=== PATIENT | female | born 1990 | race Caucasian/White ===

== ENCOUNTER 2022-04-12 09:07 | Inpatient (IN) ==
[2022-04-12 10:34] LABS: Amphetamine Screen,Urine Negative ng/mL (Cutoff=1000); Barbiturate Screen,Urine Negative ng/mL (Cutoff=200); Benzodiazepines Screen,Urine Negative ng/mL (Cutoff=200); Cannabinoid Screen,Urine Negative ng/mL (Cutoff = 50); Cocaine Screen,Urine Negative ng/mL (Cutoff= 300); Opiate Screen,Urine Negative ng/mL (Cutoff=300); Phencyclidine Screen,Urine Negative ng/mL (Cutoff=25)
[2022-04-12 10:34] LABS: Bilirubin,Urine Negative (Negative); Blood,Urine Negative (Negative); Clarity,Urine Clear (Clear); Color,Urine Yellow (Yellow); Glucose,Urine (UA) Normal (Normal); Ketones,Urine Negative (Negative); Leukocyte Esterase,Urine Negative (Negative); Nitrite,Urine Negative (Negative); Protein,Urine Trace mg/dL (Neg-Trace); Specific Gravity,Urine 1.028 (1.010-1.025); Urobilinogen,Urine Normal (Normal)
[2022-04-12 10:44] LABS: BUN/Creatinine Ratio 21 (6-26); Blood Urea Nitrogen 15 mg/dL (6-20); Carbon Dioxide 27 mEq/L (23-29); Chloride 105 mEq/L (98-107); Glucose 97 mg/dL (70-105); Sodium 136 mEq/L (136-145)
[2022-04-12 10:45] LABS: Acetaminophen < 10 mcg/mL (10-20); Calcium 8.8 mg/dL (8.6-10.3); Chol/HDL Ratio 4.1 (0-4.9); Cholesterol 164 mg/dL (< 200); Ethanol < 10 mg/dL (Less than 10); HDL Cholesterol 40 mg/dL (40-59); LDL Cholesterol,Calculated 104 mg/dL (< 100); Osmolality,Calculated 283 (280-300); Salicylate < 2.5 mg/dL (15.0-30.0); Triglycerides 102 mg/dL (< 150)
[2022-04-12 11:03] LABS: Basophils % 0.3 %; Eosinophils # 0.1 K/mcL (0.0-0.6); Eosinophils % 1.9 %; Hematocrit 41.9 % (35.3-44.9); Hemoglobin 13.6 g/dL (11.5-15.4); Immature Granulocytes % 0.1 % (0-4); Lymphocytes # 2.8 K/mcL (0.6-4.6); Lymphocytes % 38.8 %; Mean Corpuscular HGB Conc 32.5 g/dL (31.6-35.5); Mean Corpuscular Hemoglobin 30.1 pg (28.0-33.3); Mean Corpuscular Volume 92.7 fL (83.0-100.0); Mean Platelet Volume 11.6 fL (9.4-12.4); Monocytes # 0.4 K/mcL (0.0-1.3); Monocytes % 4.8 %; Neutrophils # 3.9 K/mcL (1.6-8.9); Platelet Count 229 K/mcL (140-400); Red Blood Count 4.52 M/mcL (3.82-4.97); Red Cell Distribution Width 11.8 % (11.5-14.5); Segmented Neutrophils % 54.1 %; White Blood Count 7.3 K/mcL (4.3-11.1)
[2022-04-12] MEDS ORDERED: Acetaminophen 325 MG TABLET PO ONE (11:04)
[2022-04-12 14:17] LABS: Influenza A PCR Negative (Negative); Influenza B PCR Negative (Negative); Resp. Syncytial Virus PCR Negative (Negative)
[2022-04-12 14:27] LABS: SARS-CoV-2 by PCR (In House) Negative (Negative)
[2022-04-12] MEDS ORDERED: Haloperidol Lactate 5 MG/ML VIAL IM PRN (14:39)
[2022-04-12] MEDS ORDERED: *HR* LORazepam 1 MG TABLET PO PRN (14:39)
[2022-04-12] MEDS ORDERED: *HR* LORazepam 2 MG/ML VIAL IM PRN (14:39)
[2022-04-12] MEDS ORDERED: Acetaminophen 325 MG TABLET PO PRN (14:39)
[2022-04-12] MEDS ORDERED: Ibuprofen 400 MG TABLET PO PRN (14:39)
[2022-04-12] MEDS ORDERED: hydrOXYzine pamoate 25 MG CAPSULE PO PRN (14:39)
[2022-04-12] MEDS ORDERED: haloperidoL 5 MG TABLET PO PRN (14:39)
[2022-04-12] MEDS: *HR* LORazepam 1 MG TABLET PO PRN (16:41)
[2022-04-12] MEDS: traZODone 50 MG TABLET PO PRN (20:08)
[2022-04-12] MEDS ORDERED: MOM Conc 10 ML UD.LIQ PO PRN (23:18)
[2022-04-13] MEDS: *HR* LORazepam 1 MG TABLET PO PRN ×2 (12:51→21:24)
[2022-04-13] MEDS: traZODone 50 MG TABLET PO PRN (21:24)
[2022-04-13] MEDS: Mag Hydrox/Al Hydrox/Simeth 30 ML UDC PO PRN (21:24)
[2022-04-14] MEDS: *HR* LORazepam 1 MG TABLET PO PRN ×2 (13:43→21:50)
[2022-04-14] MEDS: traZODone 50 MG TABLET PO PRN (21:49)
[2022-04-14] MEDS: Mag Hydrox/Al Hydrox/Simeth 30 ML UDC PO PRN (21:51)
[2022-04-15 08:58] VITALS: BP 129/83; PULSE 80; TEMP 97.3; O2SAT 99
== END 2022-04-15 09:35 | disposition home or self-care (01) | DRG 885 ==
LOC: EMEROOARM 09:07 → 1ANU 14:35
PROVIDERS: ADMIT Psychiatry & Neurology Psychiatry; ATTEND Psychiatry & Neurology Psychiatry